=== PATIENT | male | born 1990 | race Caucasian/White ===

== ENCOUNTER 2022-09-16 15:58 | Emergency (ER) | payer OTHER ==
[~2022-09-16] VITALS: Ht 172.7 cm; Wt 77.4 kg
[2022-09-16] MEDS ORDERED: LIDOCAINE 2% MDV 20ML VIAL SC ONE (17:35)
[2022-09-16 18:00] VITALS: BP 153/67; TEMP 98.6; O2SAT 96
[2022-09-16] MEDS ORDERED: NEOSPORIN OINT 0.9 GM PKT TOP ONE (18:00)
== END 2022-09-16 18:11 | disposition home or self-care (01) ==
LOC: M ED 15:58
DX: S91.011A Laceration without foreign body, right ankle, initial encounter (principal); W26.8XXA Contact with other sharp object(s), not elsewhere classified, initial encounter; Y92.009 Unspecified place in unspecified non-institutional (private) residence as the place of occurrence of the external cause